=== PATIENT | female | born 1990 | race African-American/Black ===

== ENCOUNTER 2017-09-16 13:12 | Inpatient (IN) | payer MEDICAID ==
[~2017-09-16] VITALS: Ht 170.2 cm; Wt 99.8 kg
[2017-09-16] MEDS ORDERED: SODIUM CHLORIDE 0.9% 1,000 ML IV ONE (14:44)
[2017-09-16] MEDS ORDERED: ACETAMINOPHEN 325MG TABLET PO PRN (14:45)
[2017-09-16 15:16] LABS: HEMATOCRIT. 40.2 % (36.0-48.0); HEMOGLOBIN. 13.9 g/dL (12.0-16.0); MEAN PLATELET VOLUME 8.7 fl (7.4-10.4); PLATELET 246 x1000/uL (130-400); RED BLOOD CELL COUNT 4.63 mill/uL (4.2-5.4); RED CELL DISTRIBUTION WIDTH 13.4 % (11.6-14.6)
[2017-09-16 15:20] LABS: CHLORIDE 101 mEq/L (98-107)
[2017-09-16 15:42] LABS: B-HCG QUANTITATIVE 77935 mIU/mL (<3)
[2017-09-16 15:54] LABS: CLARITY URINE CLOUDY (CLEAR); COLOR URINE YELLOW (YELLOW); KETONES URINE TRACE (NEGATIVE); LEUKOCYTE ESTERASE URINE 3+ (NEGATIVE); NITRITE URINE NEGATIVE (NEGATIVE); OCCULT BLOOD URINE NEGATIVE (NEGATIVE); PH URINE 5.5 (4.5-8.0); PROTEIN URINE NEGATIVE (NEGATIVE); UROBILINOGEN URINE 0.2 E.U./dL (0.2-1.0)
[2017-09-16 16:29] LABS: PLATELET ESTIMATE NORMAL
[2017-09-16] MEDS ORDERED: CEFTRIAXONE 1 G PREMIX 50 ML IV ONE (16:30)
[2017-09-16] MEDS ORDERED: SODIUM CHLORIDE 0.9% 1000ML BAG (SEPSIS BOLUS) IV ONE (16:30)
[2017-09-16] MEDS ORDERED: ACETAMINOPHEN 325MG TABLET PO STA (20:19)
[2017-09-17 09:00] VITALS: BP 111/61
[2017-09-17 11:00] VITALS: BP 111/61
[2017-09-17] MEDS ORDERED: HYDROCODONE/ACETAMINOPHEN 5/325MG TABLET PO PRN (11:45)
[2017-09-17] MEDS: ACETAMINOPHEN 325MG TABLET PO PRN ×3 (11:49→20:32)
[2017-09-17] MEDS: CEFTRIAXONE 1 G PREMIX 50 ML IV SCH (11:49)
[2017-09-17] MEDS: SODIUM CHLORIDE 0.9% 1,000 ML IV SCH (11:50)
[2017-09-17 12:00] VITALS: BP 116/59
[2017-09-17 16:00] VITALS: BP 112/65
[2017-09-17 20:00] VITALS: BP 109/52
[2017-09-17] MEDS: MICONAZOLE NITRATE 2% VAGINAL CREAM (7 DAYS) 45GM VG SCH (22:19)
[2017-09-18] VITALS: BP 113/60
[2017-09-18 04:00] VITALS: BP 133/57
[2017-09-18 06:04] LABS: BASOPHILS % 0.2 % (0.0-2.0); HEMATOCRIT. 37.2 % (36.0-48.0); LYMPHOCYTES % 10.5 % (20.0-50.0); MEAN CORPUSCULAR HEMOGLOBIN 30.5 pg (28.0-32.0); MEAN CORPUSCULAR VOLUME 87.4 fL (81.0-99.0); NEUTROPHILS % 81.3 % (40.0-76.0); PLATELET 237 x1000/uL (130-400); RED BLOOD CELL COUNT 4.26 mill/uL (4.2-5.4); RED CELL DISTRIBUTION WIDTH 13.4 % (11.6-14.6)
[2017-09-18 08:00] VITALS: BP 102/58
[2017-09-18] MEDS: CEFTRIAXONE 1 G PREMIX 50 ML IV SCH (09:12)
[2017-09-18 12:00] VITALS: BP 106/52
[2017-09-18] MEDS: ACETAMINOPHEN 325MG TABLET PO PRN ×2 (13:35→20:23)
[2017-09-18 16:00] VITALS: BP 106/55
[2017-09-18] MEDS ORDERED: LEVOFLOXACIN 500MG PREMIX 100 ML IV SCH (17:00)
[2017-09-18 20:00] VITALS: BP 102/52
[2017-09-18] MEDS: MICONAZOLE NITRATE 2% VAGINAL CREAM (7 DAYS) 45GM VG SCH (20:24)
[2017-09-19] VITALS: BP 111/64
[2017-09-19] MEDS: AMPICILLIN SOD/SULBACTAM NA 1.5 G in SODIUM CHLORIDE 0.9% 50 ML IV SCH ×3 (03:15→15:10)
[2017-09-19] MEDS: SODIUM CHLORIDE 0.9% 1,000 ML IV SCH (03:15)
[2017-09-19 04:00] VITALS: BP 100/53
[2017-09-19 06:53] LABS: BASOPHILS % 0.3 % (0.0-2.0); EOSINOPHILS % 1.7 % (0.0-5.0); HEMOGLOBIN. 13.6 g/dL (12.0-16.0); LYMPHOCYTES % 20.3 % (20.0-50.0); MEAN CORPUSCULAR VOLUME 86.3 fL (81.0-99.0); MEAN PLATELET VOLUME 8.5 fl (7.4-10.4); MONOCYTES % 6.1 % (2.0-8.0); NEUTROPHILS % 71.6 % (40.0-76.0); PLATELET 267 x1000/uL (130-400); RED BLOOD CELL COUNT 4.52 mill/uL (4.2-5.4); RED CELL DISTRIBUTION WIDTH 13.3 % (11.6-14.6)
[2017-09-19 07:54] LABS: CHLORIDE 105 mEq/L (98-107)
[2017-09-19 08:00] VITALS: BP 120/60
[2017-09-19 12:00] VITALS: BP 130/70
[2017-09-19 16:00] VITALS: BP 106/60
[2017-09-19 17:05] VITALS: BP 110/70
== END 2017-09-19 17:25 | disposition home or self-care (01) | DRG 566 ==
LOC: ER 13:12 → EDBEDREQ 18:10 → EDBEDREQTM 18:10 → 6EST 18:32 → EDBEDREQTM 18:35 → EDBEDREQ 18:35 → ENRESERV 09-17 08:11
PROVIDERS: ADMIT Internal Medicine Nephrology; ATTEND Internal Medicine Nephrology
DX: O98.811 Other maternal infectious and parasitic diseases complicating pregnancy, first trimester (principal); E44.0 Moderate protein-calorie malnutrition; O23.41 Unspecified infection of urinary tract in pregnancy, first trimester; O26.891 Other specified pregnancy related conditions, first trimester; J02.0 Streptococcal pharyngitis; Z3A.12 12 weeks gestation of pregnancy; Z90.49 Acquired absence of other specified parts of digestive tract; O25.11 Malnutrition in pregnancy, first trimester
CPT/HCPCS: 36415; 76801; 80048; 80053; 81001; 81025; 83605; 84702; 85025; 86886; 87040; 87086; 87430; 87804; 93005; 96361; 96365; 99285; J0295; J0696; J1956; J7030